=== PATIENT | male | born 1985 | race Caucasian/White ===

== ENCOUNTER → 2022-03-04 | Outpatient (CLI) | payer BC ==
[2005-08-31 12:05] VITALS: TEMP 97.9
[~2022-03-04] MED LIST: COREG 6.256.25 MG/TA PO; ROCEPHIN 2GM VIAL21 IJ
== END ==
LOC: COL.LAB 07:02
DX: I05.8 Other rheumatic mitral valve diseases (principal)

== ENCOUNTER 2022-03-07 07:30 | Outpatient (RCR) | payer BC ==
[2022-03-04 13:55] VITALS: BP 176/95; PULSE 111; TEMP 98.9
[2022-03-05 08:16] VITALS: BP 130/87; PULSE 89; TEMP 99.2
[2022-03-06 09:12] VITALS: BP 119/70; PULSE 93; TEMP 98.8
[2022-03-07 07:46] VITALS: BP 132/87; PULSE 77; TEMP 99.1
== END 2022-03-07 08:37 | disposition still patient (30) ==
LOC: EUO 07:30
DX: I33.0 Acute and subacute infective endocarditis (principal)
CPT/HCPCS: C1751; J0696